=== PATIENT | male | born 1975 | race Caucasian/White ===

== ENCOUNTER 2022-08-28 22:22 | Emergency (ER) | payer OTHER ==
[~2022-08-28] VITALS: Ht 185.4 cm; Wt 83.9 kg
[2022-08-28 22:25] VITALS: BP 166/102
[2022-08-28] MEDS ORDERED: ASPIRIN EC PO STA (22:44)
[2022-08-28] MEDS ORDERED: ASPIRIN ONE (22:45)
--- NOTE | 2022-08-28 22:46 | PCM.EKG ---
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
--- NOTE | 2022-08-28 22:49 | ER.PDOC ---
General Chief Complaint: Chest Pain-Cardiac Nature Stated Complaint: CHEST TIGHTNESS THROUGH TO BACK Time seen by MD: 22:46 Source: patient Exam Limitations: no limitations History of Present Illness Initial Comments Chest pain since this afternoon. Pain is located in the mid chest and radiates to the back. It is a tightness. Pain resolved before I saw the patient. His pain is currently 0 out of 10. No nausea or vomiting. No diaphoresis. No shortness of breath. He took 2 baby aspirin today. Timing/Duration: gone now Severity/Quality: mild, tightness Radiation: back Nitro Today/Relief: No Nitro Taken Today Aspirin Today: 81 mg x 2, Provided At Home, Provided By ED Associated Symptoms: denies symptoms Allergies: Coded Allergies: No Known Allergies (Unverified , 08/29/22) Past Medical History Medical History: hypertension Surgical History: hip Family History Significant Family History: no pertinent family hx Social History Smoking: non-smoker Alcohol Use: rarely Drug Use: none Constitutional: no symptoms reported EENTM: no symptoms reported Respiratory: no symptoms reported Cardiovascular: see HPI Gastrointestinal: no symptoms reported All Other Systems: Reviewed and Negative Physical Exam General Appearance: No Apparent Distress, WD/WN Neck: Non-Tender, Full Range of Motion, Supple, Normal Inspection Respiratory: chest non-tender, lungs clear, normal breath sounds, no respiratory distress, no accessory muscle use Cardiovascular: Normal Peripheral Pulses, Regular Rate, Rhythm, No Edema, No Gallop, No JVD, No Murmur Gastrointestinal: Normal Bowel Sounds, No Organomegaly, No Pulsatile Mass, Non Tender, Soft Extremities: Normal Range of Motion, Non-Tender, Normal Inspection, No Pedal Edema, No Calf Tenderness, Normal Capillary Refill 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 (08/28/22 22:44) Troponin I High Sensitivity (08/28/22 22:44) Aspirin (Aspirin Ec) (08/28/22 22:44) Aspirin (Aspirin) (08/28/22 22:45) Troponin I High Sensitivity (08/29/22 00:30) Vital Signs Date Time Temp Pulse Resp B/P (MAP) Pulse Ox O2 Delivery O2 Flow Rate FiO2 08/28/22 22:25 97.6 91 18 08/28/22 22:25 97.6 91 18 97 08/28/22 22:25 97.6 91 18 166/102 (123) 97 Room Air* 0 21 Administered Medications Medications (Trade) Dose Ordered Sig/Alon Route PRN Reason Start Time Stop Time Status Last Admin Dose Admin Aspirin (Aspirin Ec) 162 mg STAT STAT PO 08/28/22 22:44 08/28/22 22:46 DC 08/28/22 22:48 162 MG Laboratory Tests Test 08/28/22 22:32 08/29/22 00:25 White Blood Count 7.0 10^3/uL (4.5-11.0) Red Blood Count 4.90 10^6/uL (4.50-5.90) Hemoglobin 14.2 g/dL (13.9-16.3) Hematocrit 42.6 % (37.0-53.0) Mean Corpuscular Volume 86.9 fL (78-100) Mean Corpuscular Hemoglobin 29.0 pg (26-34) Mean Corpuscular Hemoglobin Concent 33.3 g/dL (33-36.5) Red Cell Distribution Width 12.9 % (11.5-14.5) Platelet Count 237 10^3/uL (150-400) Mean Platelet Volume 10.3 fL (7.8-11.0) Neutrophils (%) (Auto) 59.7 % (41.0-85.0) Lymphocytes (%) (Auto) 28.3 % (24.0-44.0) Monocytes (%) (Auto) 10.3 % (5.0-12.0) Neutrophils # (Auto) 4.2 10^3/uL (1.8-7.7) Lymphocytes # (Auto) 1.97 10^3/uL1 (1.0-4.8) Monocytes # (Auto) 0.7 10^3/uL (0.3-0.8) Absolute Immature Granulocyte (auto 0 10^3 u/L (0-2) Absolute Eosinophils (auto) 0.1 10^3/uL (0.0-0.2) Immature Granulocytes % 0.00 % (0.00-0.50) Eosinophils % 1.4 % (0.0-5.0) Basophils % 0.3 % (0.0-0.2) H Basophils # 0.0 10^3/uL (0.0-0.1) Prothrombin Time 9.6 SEC (9.7-11.6) L INR 0.9 Activated Partial Thromboplast Time 26.9 SEC (22.5-33.1) Sodium Level 142 mmol/L (132-145) Potassium Level 4.0 mmol/L (3.6-5.2) Chloride Level 104.0 mmol/L (96-109) Carbon Dioxide Level 31.3 mmol/L (20.0-32) Anion Gap 10.7 Blood Urea Nitrogen 13 mg/dL (7-18) Creatinine 1.13 mg/dL (0.59-1.40) Estimated GFR () 83.8 (>/=60) Est GFR (CKD-EPI)(Non-Afr Malaysian) 69.3 (>/=60) BUN/Creatinine Ratio 11.0 (10.0-20.0) Glucose Level 80 mg/dL (74-106) Calcium Level 9.1 mg/dL (8.4-10.5) Total Bilirubin 0.4 mg/dL (0.2-1.0) Aspartate Amino Transferase (AST) 15 U/L (0-35) Alanine Aminotransferase (ALT) 25 U/L (12-78) Alkaline Phosphatase 95 U/L (50-136) Total Creatine Kinase 137 U/L (39-308) Creatine Kinase MB 0.8 ng/mL (0.5-3.6) Troponin I High Sensitivity < 4 ng/L (0-75) < 4 ng/L (0-75) Pro-B-Type Natriuretic Peptide 29 pg/mL (0-125) Total Protein 7.5 g/dL (6.4-8.2) Albumin 3.8 g/dL (3.4-5.0) Globulin 3.7 Albumin/Globulin Ratio 1.027 Progress Progress Chest x-ray: Normal Chemistry normal, cardiac enzymes normal, CBC normal 2 sets of troponin drawn 2 hours apart are both less than 4. Patient continues to be asymptomatic and has not experienced any more chest pain in the emergency room. He told me that he has a history of anxiety and takes lorazepam. He is feeling better to go home. 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 EKG/XRAY/CT/US EKG: NSR EKG Comments: HR 93, normal P axis ER DEPART Departure Time of Disposition: 01:11 Disposition: 01 HOME / SELF CARE / HOMELESS Impression: Primary Impression: Nonspecific chest pain Additional Impression: Anxiety Condition: Improved Referrals: PCP,UNKNOWN (PCP) PRIMARY CARE PROVIDER Additional Instructions: Continue home medications Follow-up with your PCP 1 to 2 days Follow-up with your floor coverer apprentice as scheduled by your PCP Return to ED if worsening pain or concerns Duration or Time Spent with Pa: 60 min Problem Qualifiers JAHAIRA JAMES MD Aug 28, 2022 22:49
[2022-08-28 22:54] LABS: BASOPHIL % 0.3 % (0.0-0.2); EOSINOPHIL # 0.1 10^3/uL (0.0-0.2); EOSINOPHIL % 1.4 % (0.0-5.0); LYMPHOCYTES # 1.97 10^3/uL1 (1.0-4.8); LYMPHOCYTES % 28.3 % (24.0-44.0); MONOCYTES # 0.7 10^3/uL (0.3-0.8); MONOCYTES % 10.3 % (5.0-12.0); NEUTROPHIL # 4.2 10^3/uL (1.8-7.7); NEUTROPHILS % 59.7 % (41.0-85.0); PLATELET COUNT 237 10^3/uL (150-400); RED CELL DISTRIBUTION WIDTH 12.9 % (11.5-14.5)
--- NOTE | 2022-08-28 23:18 | DIREP ---
PROCEDURE:CHEST 1 VIEW COMPARISON:None. INDICATIONS:Chest pain FINDINGS: LUNGS/PLEURA:No significant pulmonary parenchymal abnormalities. No effusions. No pneumothorax. VASCULATURE:Normal. Unremarkable pulmonary vasculature. CARDIAC:Normal. No cardiac silhouette abnormality or cardiomegaly. MEDIASTINUM:Normal. No visible mass or adenopathy. BONES:Normal. No fracture or visible bony lesion. OTHER:Negative. CONCLUSION:No acute disease. Dictated by: Endy Kruger MD on 08/28/2022 at 11:16 PM
[2022-08-28 23:27] LABS: CARBON DIOXIDE 31.3 mmol/L (20.0-32); GLUCOSE 80 mg/dL (74-106)
[2022-08-28 23:30] VITALS: BP 128/80
[2022-08-29 00:30] VITALS: BP 139/84
[2022-08-29 01:13] VITALS: BP 130/76
== END 2022-08-29 01:13 | disposition home or self-care (01) ==
LOC: ER 22:22
DX: R07.89 Other chest pain (principal); F41.9 Anxiety disorder, unspecified; I10 Essential (primary) hypertension
CPT/HCPCS: 36415; 71045; 80053; 82550; 82553; 83880; 84484; 85025; 85610; 85730; 93005; 99285